=== PATIENT | male | born 1970 | race Caucasian/White ===

== ENCOUNTER 2021-04-16 19:44 | Emergency (ER) | payer BC ==
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
[2021-04-16 21:28] VITALS: BP 145/87; PULSE 74; O2SAT 98
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
== END 2021-04-16 21:38 | disposition home or self-care (01) ==
LOC: ED 19:44
DX: S46.911A Strain of unspecified muscle, fascia and tendon at shoulder and upper arm level, right arm, initial encounter (principal); M25.511 Pain in right shoulder; S50.811A Abrasion of right forearm, initial encounter; S80.211A Abrasion, right knee, initial encounter; V00.141A Fall from scooter (nonmotorized), initial encounter
CPT/HCPCS: 73030; 99283